=== PATIENT | female | born 1990 | race Caucasian/White ===

== ENCOUNTER → 2019-05-31 13:00 | Outpatient (BNVA) | payer MEDICAID, SELFPAY | PROVIDERS: Family Provider Nurse Practitioner Family; PCP Nurse Practitioner Family; Visit Provider Specialist | DX: F90.9 Attention-deficit hyperactivity disorder, unspecified type (principal) | CPT/HCPCS: 99213 ==

== ENCOUNTER → 2019-08-30 15:03 | Outpatient (BNVA) | payer MEDICAID, SELFPAY | PROVIDERS: Family Provider Nurse Practitioner Family; PCP Nurse Practitioner Family; Visit Provider Specialist | DX: F90.9 Attention-deficit hyperactivity disorder, unspecified type (principal); G47.33 Obstructive sleep apnea (adult) (pediatric); R29.90 Unspecified symptoms and signs involving the nervous system | CPT/HCPCS: G0463 ==

== ENCOUNTER → 2021-04-01 14:17 | Outpatient (BNVA) | payer MEDICAID, SELFPAY | PROVIDERS: Family Provider Nurse Practitioner Family; PCP Nurse Practitioner Family; Visit Provider Specialist | DX: F90.9 Attention-deficit hyperactivity disorder, unspecified type (principal); F89 Unspecified disorder of psychological development | CPT/HCPCS: 99213 ==

== ENCOUNTER → 2021-08-18 15:54 | Outpatient (BNVA) | payer MEDICAID, SELFPAY | PROVIDERS: Family Provider Nurse Practitioner Family; PCP Nurse Practitioner Family; Visit Provider Specialist | DX: F90.9 Attention-deficit hyperactivity disorder, unspecified type (principal); F89 Unspecified disorder of psychological development | CPT/HCPCS: 99213 ==